=== PATIENT | male | born 1955 ===

== ENCOUNTER 2021-08-07 05:45 | Day surgery (SDC) | payer OTHER ==
[~2021-08-07 05:45] MED LIST: AVAPRO300 MG PO; LOPRESSOR PO; NORVASC5 MG PO; PERCOCET 5-3251 EACH PO; TAMS0.4C PO
[2021-08-07] MEDS ORDERED: ULTRAM50 MG PO (10:29)
== END 2021-08-07 12:30 | disposition home or self-care (01) ==
LOC: CIR.AMB 05:45
PROVIDERS: ATTEND Surgery
DX: C20 Malignant neoplasm of rectum (principal); Z20.822 Contact with and (suspected) exposure to COVID-19
CPT/HCPCS: 36561; C1751

== ENCOUNTER 2022-02-02 09:00 | Inpatient (IN) | payer OTHER ==
[~2022-02-02] VITALS: Ht 170.2 cm; Wt 80.7 kg
[~2022-02-02 09:00] MED LIST changes: +ULTRAM50 MG PO
[2022-02-05] MEDS ORDERED: VITAMIN C1000 MG (10:59)
[2022-02-05] MEDS ORDERED: METOPROLOL TAR100 MG (11:00)
[2022-02-05] MEDS ORDERED: OMEPRAZOLE20 MG (11:00)
[2022-02-08] MEDS ORDERED: OXYC1TAB9 PO (13:28)
[2022-02-08] MEDS ORDERED: NEURONTIN300 MG PO (13:29)
[2022-02-08] MEDS ORDERED: LEVSIN/SL0.125 MG SL (13:29)
== END 2022-02-08 15:16 | disposition home or self-care (01) | DRG 330 ==
LOC: O/R 02-05 05:30 → SURH 02-05 09:00
PROVIDERS: ADMIT Surgery; ATTEND Surgery
PROC: 0DBP4ZZ Excision of Rectum, Percutaneous Endoscopic Approach (ICD-10-PCS; 2022-02-05)
PROC: 07BC4ZZ Excision of Pelvis Lymphatic, Percutaneous Endoscopic Approach (ICD-10-PCS; 2022-02-05)
PROC: 0D1B4Z4 Bypass Ileum to Cutaneous, Percutaneous Endoscopic Approach (ICD-10-PCS; 2022-02-05)
PROC: 3E0F7SF Introduction of Other Gas into Respiratory Tract, Via Natural or Artificial Opening (ICD-10-PCS; 2022-02-05)
PROC: 0DTN4ZZ Resection of Sigmoid Colon, Percutaneous Endoscopic Approach (ICD-10-PCS; principal; 2022-02-05 09:00)
DX: C20 Malignant neoplasm of rectum (principal); K62.5 Hemorrhage of anus and rectum; Z20.822 Contact with and (suspected) exposure to COVID-19

== ENCOUNTER 2024-06-11 12:15 | Inpatient (IN) | payer OTHER ==
[~2024-06-11] VITALS: Ht 170.2 cm; Wt 87.1 kg
[~2024-06-11 12:15] MED LIST changes: +LEVSIN/SL0.125 MG SL; +METOPROLOL TAR100 MG; +NEURONTIN300 MG PO; +OMEPRAZOLE20 MG; +OXYC1TAB9 PO; +VITAMIN C1000 MG
[2024-06-11 15:08] VITALS: BP 150/89
[2024-06-15] MEDS ORDERED: CEFTRIAXONE SODIUM 2,000 MG VIAL IV ONE (13:45)
[2024-06-15] MEDS ORDERED: METRONIDAZOLE/SODIUM CHLORIDE 500 MG/100 ML PIGGYBACK IV ONE (13:45)
[2024-06-15] MEDS ORDERED: BUPIVACAINE HCL/PF 0.25% 30ML VIAL InF ONE (14:15)
[2024-06-15] MEDS ORDERED: LIDOCAINE HCL 1%/EPINEPHRINE 20ML VIAL IJ ONE (14:15)
[2024-06-15] MEDS ORDERED: FAMOTIDINE20 MG (14:56)
[2024-06-15] MEDS ORDERED: AVASTIN25 MG/1 ML (14:56)
[2024-06-15] MEDS ORDERED: SIMVASTATIN40 MG (14:56)
[2024-06-15] MEDS ORDERED: MAGNESIUM400 MG (14:56)
[2024-06-15] MEDS ORDERED: SERTRALINE HCL50 MG (14:56)
[2024-06-15] MEDS ORDERED: MORPHINE SULFATE 4 MG/ML VIAL IV ONE ×3 (15:05→17:40)
[2024-06-15] MEDS ORDERED: MORPHINE SULFATE 4 MG/ML CARTRIDGE IV PRN (17:15)
[2024-06-15] MEDS ORDERED: OxyCODONE HCL 5 MG TABLET (ROXICODONE) PO PRN (17:15)
[2024-06-15] MEDS ORDERED: RINGERS SOLUTION,LACTATED 1,000 ML IV SCH (17:15)
[2024-06-15] MEDS ORDERED: LACTOBACILLUS ACIDOPHILUS 1 CAP CAP PO SCH (17:15)
[2024-06-15] MEDS ORDERED: ONDANSETRON HCL 2 MG/ML VIAL IV PRN (17:15)
[2024-06-15] MEDS ORDERED: ACETAMINOPHEN 500 MG GEL..CAP PO SCH (18:00)
[2024-06-15] MEDS ORDERED: METOPROLOL TARTRATE 100 MG TABLET PO ONE (18:15)
[2024-06-15 19:06] VITALS: BP 151/87; O2SAT 95
[2024-06-15] MEDS ORDERED: CIPROFLOXACIN IN 5 % DEXTROSE 400 MG/200 ML PIGGYBAG IV SCH (21:00)
[2024-06-15] MEDS ORDERED: FAMOTIDINE/PF 20 MG/2 ML VIAL IV PUSH SCH (21:00)
[2024-06-16] VITALS: BP 140/87; O2SAT 95
[2024-06-16] MEDS ORDERED: METRONIDAZOLE/SODIUM CHLORIDE 500 MG/100 ML PIGGYBACK IV SCH (01:00)
[2024-06-16] MEDS ORDERED: GABAPENTIN 300 MG CAPSULE PO SCH (01:00)
[2024-06-16 08:10] VITALS: BP 142/88; O2SAT 96
[2024-06-16 08:35] LABS: HEMATOCRIT 40.3 % (39.0-48.0); MEAN CORPUSCULAR HEMOGLOBIN 31.5 pg (27.00-32.0); MEAN CORPUSCULAR HGB CONC 34.6 g/dl (32.0-36.0); RED BLOOD COUNT 4.42 M/uL (4.00-6.00); RED CELL DISTRIBUTION WIDTH 15.2 % (11.5-14.5)
[2024-06-16 08:36] LABS: PLATELET COUNT 89 K/uL (150-450)
[2024-06-16] MEDS ORDERED: METOPROLOL TARTRATE 100 MG TABLET PO SCH (09:00)
[2024-06-16] MEDS ORDERED: TAMSULOSIN HCL 0.4 MG CAP PO SCH (09:00)
[2024-06-16] MEDS ORDERED: AMLODIPINE BESYLATE 5 MG TABLET PO SCH (09:00)
[2024-06-16] MEDS ORDERED: HYOSCYAMINE SULFATE 0.125 MG TAB.SUBL SL SCH (09:00)
[2024-06-16 09:28] LABS: ALBUMIN 3.3 gm/dL (3.4-5.0); CALCIUM 8.8 mg/dL (8.5-10.1); CREATININE SERUM 1.14 mg/dL (0.70-1.30); GFR 63.69; MAGNESIUM 1.9 mg/dL (1.8-2.4); PHOSPHOROUS 2.9 mg/dL (2.5-4.9); POTASSIUM 4.36 mEq/L (3.5-5.1)
[2024-06-16] MEDS ORDERED: ENOXAPARIN SODIUM 40 MG/0.4 ML SYRINGE SUBCUTANEO SCH (17:00)
[2024-06-16 17:04] VITALS: BP 155/89; O2SAT 89
[2024-06-17 01:10] VITALS: BP 139/80; O2SAT 95
[2024-06-17 08:43] LABS: HEMATOCRIT 39.9 % (39.0-48.0); HEMOGLOBIN 13.9 g/dL (13-16.00); MEAN CELL VOLUME 90.5 fL (80.0-100.00); MEAN CORPUSCULAR HEMOGLOBIN 31.5 pg (27.00-32.0); MEAN CORPUSCULAR HGB CONC 34.8 g/dl (32.0-36.0); RED BLOOD COUNT 4.41 M/uL (4.00-6.00); RED CELL DISTRIBUTION WIDTH 15.9 % (11.5-14.5)
[2024-06-17] MEDS ORDERED: ENOXAPARIN SODIUM 40 MG/0.4 ML SYRINGE SUBCUTANEO SCH (09:00)
[2024-06-17] MEDS ORDERED: IRBESARTAN 300 MG TABLET PO SCH (09:00)
[2024-06-17] MEDS ORDERED: PANTOPRAZOLE SODIUM 40 MG TABLET.DR PO SCH (09:00)
[2024-06-17 09:27] LABS: PLATELET COUNT 89 K/uL (150-450)
[2024-06-17 09:28] LABS: PLT IN CITRATE 64 K/uL (150-450)
[2024-06-17 09:40] VITALS: BP 148/100; O2SAT 96
[2024-06-17] MEDS ORDERED: ENALAPRILAT DIHYDRATE 1.25 MG/ML VIAL IV PRN (11:15)
[2024-06-17 15:35] VITALS: BP 118/82; O2SAT 97
[2024-06-18] VITALS: BP 149/88; O2SAT 97
[2024-06-18 10:11] VITALS: BP 143/87; O2SAT 96
[2024-06-18] MEDS ORDERED: INTESTINEX680 M1 PO (10:54)
[2024-06-18] MEDS ORDERED: HYOSCYAMINE0.125 M1 SL (10:54)
[2024-06-18] MEDS ORDERED: PEPCID AC20 MG PO (10:55)
== END 2024-06-18 14:19 | disposition home or self-care (01) | DRG 348 ==
LOC: SURH 06-15 07:00 → O/R 06-15 11:31 → SURH 06-15 12:15
PROVIDERS: Internal Medicine; ADMIT Surgery; ATTEND Surgery
PROC: 0DBB4ZZ Excision of Ileum, Percutaneous Endoscopic Approach (ICD-10-PCS; principal; 2024-06-15 07:00)
DX: Z43.2 Encounter for attention to ileostomy (principal); C20 Malignant neoplasm of rectum; K62.5 Hemorrhage of anus and rectum; K66.0 Peritoneal adhesions (postprocedural) (postinfection); D69.6 Thrombocytopenia, unspecified